=== PATIENT | male | born 1990 | race Two or more races ===

== ENCOUNTER 2020-09-12 15:02 | Emergency (ER) | payer SELFPAY ==
--- NOTE | 2020-09-12 15:15 | XR_ITS ---
EXAMINATION: XR KNEE, LEFT CLINICAL INFORMATION: Pain COMPARISON: None TECHNIQUE: Two views of the left knee. FINDINGS: There is no fracture or subluxation. Compartmental joint spaces are maintained. No joint effusion. The soft tissues are unremarkable. XR/XR knee LT 2V IMPRESSION: Normal appearance of the left knee.
[2020-09-12 15:21] VITALS: BP 126/76; PULSE 74; RESP 16; TEMP 36.6; O2SAT 98; BMI 29.0
--- NOTE | 2020-09-12 15:57 | ED_ITS ---
HPI - Extremity Injury (Lower) General Chief Complaint: Extremity Injury, Lower <SALVADOR Wheatley - Last Filed: 09/12/20 16:07> Stated Complaint: L KNEE PAIN <SALVADOR Wheatley - Last Filed: 09/12/20 16:07> Time Seen by Provider: 09/12/20 15:15 <SALVADOR Wheatley - Last Filed: 09/12/20 16:07> History of Present Illness HPI Narrative: Patient complains of pain in the left knee for the past 3 or 4 days, no injury He has had pain on and off in this knee since an athletic injury 15 years ago but the pain is increasing and the last few days it has been very uncomfortable, no calf pain no new injury no numbness no weakness Pain is mild and moderate with weight-bearing <SALVADOR Wheatley - Last Filed: 09/12/20 16:07> Related Data Home Medications: Previous Rx's Medication Instructions Recorded ibuprofen 600 mg PO Q6H PRN #20 tab 09/12/20 <SALVADOR Wheatley - Last Filed: 09/12/20 16:07> Allergies/Adverse Reactions: Allergies Allergy/AdvReac Type Severity Reaction Status Date / Time No Known Allergies Allergy Verified 09/12/20 16:07 <SALVADOR Wheatley - Last Filed: 09/12/20 16:07> Review of Systems Review of Systems: No numbness no weakness no paresthesias no radiation of pain no rash no swelling no calf pain no fever no chills <SALVADOR Wheatley - Last Filed: 09/12/20 16:07> Yes all other systems are reviewed and are negative <SALVADOR Wheatley - Last Filed: 09/12/20 16:07> [facility] Past Medical History Attestation statement: The following information was validated with the patient. <ASLVADOR Wheatley - Last Filed: 09/12/20 16:07> [facility] Narrative: Knee injury of the left knee years ago <SALVADOR Wheatley - Last Filed: 09/12/20 16:07> Medical History: Medical History (Updated 09/13/20 @ 00:00 by Background Daemmichael) No known health problems <SALVADOR Wheatley Last Filed: 09/12/20 16:07> Social History Social History: Social History Smoked in Last 30 Days: No Use of substances other than those prescribed or required for medical reasons: No Advance Directives: No Advance Directives Information Provided: Yes <SALVADOR Wheatley - Last Filed: 09/12/20 16:07> Physical Exam Vital Signs: Vital Signs: Last Vital Signs Temp 97.8 F 09/12/20 15:21 Pulse 74 09/12/20 15:21 Resp 16 09/12/20 15:21 BP 126/76 09/12/20 15:21 Pulse Ox 98 09/12/20 15:21 Body Mass Index 29.0 <SALVADOR Wheatley - Last Filed: 09/12/20 16:07> Vital Signs: Last Vital Signs Temp 97.8 F 09/12/20 15:21 Pulse 74 09/12/20 15:21 Resp 16 09/12/20 15:21 BP 126/76 09/12/20 15:21 Pulse Ox 98 09/12/20 15:21 Body Mass Index 29.0 <Sidney Portillo MD - Last Filed: 09/18/20 16:00> General appearance no acute distress comfortable relaxed cooperative The neck is supple no respiratory distress The extremities the left knee has lateral joint line tenderness there is no swelling no effusion no redness no warmth there is pain with flexion at around 90 degrees and the knee extends fully to 180, the skin is intact and neurovascular intact distal Skin no rash Neuro no focal deficit <SALVADOR Wheatley - Last Filed: 09/12/20 16:07> Course Course Course Narrative: Patient ambulates easily with a limp X-ray of the left knee did not show any arthritic change or acute abnormality and patient is discharged to follow with Orthopedics <SALVADOR Wheatley - Last Filed: 09/12/20 16:07> I have reviewed the chart <Sidney Portillo MD - Last Filed: 09/18/20 16:00> Discharge Plan Discharge Clinical Impression: Left knee sprain <SALVADOR Wheatley - Last Filed: 09/12/20 16:07> Patient Disposition: Home, Self-Care <SALVADOR Wheatley - Last Filed: 09/12/20 16:07> Additional Instructions: You may have injury to a ligament or cartilage in your knee so follow with orthopedist for further evaluation <SALVADOR Wheatley - Last Filed: 09/12/20 16:07> Prescriptions: New ibuprofen 600 mg tablet 600 mg PO Q6H PRN (Reason: pain) Qty: 20 RF: 0 <SALVADOR Wheatley - Last Filed: 09/12/20 16:07> Referrals: Benitez Mccarthy MD [Physician] - 2 days (Worsening left knee pain after an injury) <SALVADOR Wheatley - Last Filed: 09/12/20 16:07> Stand Alone Forms: Work/School Release <SALVADOR Wheatley - Last Filed: 09/12/20 16:07> Interventions: ED Discharge Assessment Last Done: 09/12/20 16:08 <SALVADOR Wheatley - Last Filed: 09/12/20 16:07> Discharge Date/Time: 09/12/20 16:13 <SALVADOR Wheatley - Last Filed: 09/12/20 16:07>
== END 2020-09-12 16:13 | disposition home or self-care (01) ==
PROVIDERS: Emergency Provider Emergency Medicine
DX: S83.92XA Sprain of unspecified site of left knee, initial encounter (principal); M25.562 Pain in left knee; X58.XXXA Exposure to other specified factors, initial encounter; Y93.9 Activity, unspecified; Y92.9 Unspecified place or not applicable; Y99.9 Unspecified external cause status
CPT/HCPCS: 73560; 99283; 99284

== ENCOUNTER 2023-03-29 12:52 | Emergency (ER) | payer MEDICAID, SELFPAY ==
--- NOTE | ~2023-03-29 | XR_ITS ---
EXAMINATION: XR SHOULDER, LEFT CLINICAL INFORMATION: Left shoulder pain COMPARISON: None available. TECHNIQUE: Three views of the left shoulder. FINDINGS: The bones and soft tissues are normal. No fracture. Glenohumeral and acromioclavicular alignment is anatomic with normal joint space. No abnormal soft tissue calcifications. XR/XR shoulder LT min 2V IMPRESSION: Normal left shoulder.
--- NOTE | 2023-03-29 13:38 | ED.GENADULT ---
HPI - General Adult General Chief complaint: Extremity Injury, Upper Stated complaint: L shoulder pain no inj Time Seen by Provider: 03/29/23 14:34 Source: patient Mode of arrival: ambulatory Limitations: no limitations History of Present Illness HPI narrative: 33 yo male with no significant past medical history, presents today with left shoulder pain x a few hours. Patient states that he was sitting in his car when he felt his left shoulder pop out of place . He was at work at the time, got out of the car and could not move the arm due to the pain. He eventually felt the left shoulder pop back into place. Notes he had a similar episode last week which resolved after rubbing his left shoulder, however cannot recall what he was doing at the time that caused his pain. He is currently able to move his left arm with some pain. Pain is localized to the lateral aspect of the left shoulder. No pain radiation. Pain is better with rest. Denies numbness or paresthesias to the left arm or left fingers, right arm or right shoulder pain. No trauma or injury to the left arm. Onset (ago): minute(s) (2) Location: left and upper extremity Radiation: non-radiation Quality: aching Relieving factors: none Exacerbating factors: none Related Data Previous Rx's Medication Instructions Recorded ibuprofen 600 mg tablet 600 mg PO Q6H PRN pain #20 tabs 09/12/20 Allergies Allergy/AdvReac Type Severity Reaction Status Date / Time No Known Allergies Allergy Verified 03/29/23 13:38 Review of Systems Review of Systems: Yes all other systems are reviewed and are negative [facility] Past Medical History Medical History (Updated 03/29/23 @ 15:34 by SALVADOR Pennington) No known health problems Social History Social History Advance Directives: No Physical Exam ED Vital Signs: Vital Signs - 24 hr 03/29/23 13:39 Temperature 98.0 F Pulse Rate 60 Respiratory Rate 16 Blood Pressure 120/81 Pulse Oximetry 99 Oxygen Delivery Method Room Air BMI result Body Mass Index 28.2 VSS Appearance: Alert. Oriented X3. No acute distress. Head: normocephalic, atraumatic. Eyes: Pupils equal, round and reactive to light. ENT: Pharynx normal. No tonsillar swelling or exudate. Neck: Normal inspection. Neck supple. CVS: Normal heart rate and rhythm. Pulses normal. Respiratory: No respiratory distress. Breath sounds normal. Abdomen: Soft and nontender. +BS x4 Skin: Skin warm and dry. Normal skin color. Normal skin turgor. No rashes. Extremities: Pain with abduction of the LUE. Normal ROM of the LUE. No erythema or edema of the UE. No lower extremity edema. No joint swelling. Neuro/psych: Oriented X 3. No motor deficit. No sensory deficit. CN II-XII intact. Normal speech and cognition. Course Course Course Narrative: RME performed by Debra Mcneil PA-C. Patient is a 33 year old assigned male at presenting to the emergency department with left shoulder pain. Imaging ordered. Patient placed back in the waiting room pending room availability and results. Medical Decision Making Medical Decision Making MDM Narrative: 33 yo male with no significant past medical history, presents today with left shoulder pain x a few hours. States he felt his left shoulder pop out of place and pop back into place after a few minutes. VSS. Physical exam significant for pain with abduction of the LUE. Normal ROM of the LUE. No UE edema or erythema. No lower extremity edema. No joint swelling. Patient sitting comfortably on the exam bed. States he is feeling better with left arm sling. Shoulder xray showed no acute findings. Patient to be discharged home with ibuprofen prn and ortho follow up. Discussed plan with patient and patient is in agreement. Stable for discharge. Differential Diagnosis Differential Diagnoses: The differential diagnosis associated with the presentation includes shoulder dislocation, rotator cuff tear, rotator cuff injury, humeral fracture Independent Interpretation I performed an independent interpretation of an: Plain X-Ray Interpretation: shoulder xray: no acute fracture, agree with radiologists read. Radiology Impression Discussion of test interpretation with radiology: I have reviewed the radiologist's reading. Radiologist Impression: ?XR/XR shoulder LT min 2V IMPRESSION: Normal left shoulder. Prescription Management I considered prescription management with: Pain Medication (ibuprofen) Discharge Plan Discharge Clinical Impression: Acute shoulder pain Patient Disposition: Home, Self-Care Instructions: Shoulder Pain (ED) Additional Instructions: Your x-ray today was normal. Recommend wearing the sling for immobilization and comfort for the next few days. Recommend following up with orthopedics for further evaluation. Recommend Motrin or ibuprofen for pain. Ice the area several times per day. If you develop new or worsening symptoms call 911 or come back to the ER for further evaluation. Prescriptions: No Action ibuprofen 600 mg tablet 600 mg PO Q6H PRN (Reason: pain) Qty: 20 0RF Referrals: [facility] [place] Orthopedic Surgeons [Provider Group] (Possible left shoulder dislocation, x-ray normal) Interventions: ED Discharge Assessment Last Done: 03/29/23 15:41 Discharge Date/Time: 03/29/23 16:18
[2023-03-29 13:39] VITALS: BP 120/81; PULSE 60; RESP 16; TEMP 36.7; O2SAT 99; BMI 28.2
--- NOTE | 2023-03-29 15:38 | PC.NURSE ---
sling applied to left arm for shoulder immobilization, pt tolerated well.
== END 2023-03-29 16:18 | disposition home or self-care (01) ==
PROVIDERS: Emergency Provider Emergency Medicine; PCP Internal Medicine
DX: M25.512 Pain in left shoulder (principal)
CPT/HCPCS: 73030; 99282; 99283

== ENCOUNTER 2023-05-14 10:16 | Emergency (ER) | payer MEDICAID, SELFPAY ==
--- NOTE | ~2023-05-14 | XR_ITS ---
EXAMINATION: XR SHOULDER, LEFT CLINICAL INFORMATION: Pain COMPARISON: None available. TECHNIQUE: AP external rotation, Grashey, scapular Y, and axillary views of the left shoulder. FINDINGS: The bones and soft tissues are normal. No fracture. Glenohumeral and acromioclavicular alignment is anatomic with normal joint space. No abnormal soft tissue calcifications. XR/XR shoulder LT min 2V IMPRESSION: Normal left shoulder.
[2023-05-14 10:30] VITALS: BP 134/81; BP 154/73; PULSE 103; PULSE 121; RESP 18; TEMP 36.4; O2SAT 98; BMI 29.0
--- NOTE | 2023-05-14 10:33 | ECG_ITS ---
Test Reason : overdose Blood Pressure : / mmHG Vent. Rate : 093 BPM Atrial Rate : 093 BPM P-R Int : 176 ms QRS Dur : 086 ms QT Int : 336 ms P-R-T Axes : 062 021 028 degrees QTc Int : 417 ms Normal sinus rhythm Normal ECG When compared with ECG of 27-MAY-2016 15:48, Vent. rate has increased BY 36 BPM QT has lengthened Referred By: Virginia Sher Electronically Signed By:Meet Dykes
--- NOTE | 2023-05-14 10:41 | PC.NURSE ---
Pt to [facility] [place] from [place] via EMS for overdose, pt recieved 4 of Narcan from EMS. Currently A&Ox; calm & cooperative. Plan for EKG, labs, observation. No belongings on patient. WCTA
[2023-05-14 10:42] VITALS: BP 154/73; PULSE 103; RESP 18; TEMP 36.4; O2SAT 98
[2023-05-14 10:47] LABS: MANUAL DIFF FLAG NO
[2023-05-14 10:49] LABS: Basophils Absolute Auto 0.1 X10*3/uL (0.0-0.2); Basophils Percent Auto 0.5 % (0-2); Eosinophils Absolute Auto 0.3 X10*3/uL (0.0-0.4); Eosinophils Percent Auto 2.4 % (0-4); Hematocrit 49.1 % (42.0-52.0); Hemoglobin 16.8 g/dl (14.0-18.0); Imm Gran Abs Auto 0.05 X10*3/uL (0.00-0.03); Imm Gran Pct Auto 0.5 % (0.0-0.4); Lymphocytes Absolute Auto 1.4 X10*3/uL (1.2-4.9); Lymphocytes Percent Auto 12.5 % (20-40); Mean Corpuscular HGB Conc 34.2 g/dl (31.0-36.0); Mean Corpuscular Hemoglobin 28.8 pg (27.0-33.0); Mean Corpuscular Volume 84.2 fL (80.0-98.0); Mean Platelet Volume 10.3 fL (9.4-12.4); Monocytes Absolute Auto 0.6 X10*3/uL (0.1-1.2); Monocytes Percent Auto 5.2 % (2-11); Neutrophils Absolute Auto 8.5 x10*3/uL (2.0-8.3); Neutrophils Percent Auto 78.9 % (45-73); Platelet Count 175 X10*3/uL (160-400); Red Blood Count 5.83 X10*6/uL (4.60-5.80); Red Cell Distribution Width 12.9 % (11.0-16.0); White Blood Count 10.8 X10*3/uL (4.8-10.8)
[2023-05-14 11:10] LABS: Amphetamine Screen Urine Not Detected (Not Detect); Barbiturates, Urine Not Detected (Not Detect); Benzodiazepines Screen Urine Not Detected (Not Detect); Cannabinoid Screen Urine Not Detected (Not Detect); Cocaine Screen Urine POSITIVE (Not Detect); Fentanyl, urine Not Detected (Not Detect); Opiate Screen Urine Not Detected (Not Detect); Phencyclidine Screen Urine Not Detected (Not Detect)
[2023-05-14 11:10] LABS: COVID-19 Test Negative (Negative); IDNOW Serial# BCCEAD1C
[2023-05-14 11:13] LABS: Acetaminophen LAB < 17 mcg/mL (<30); Alanine Aminotransferase 58 U/L (0-40); Albumin Level 4.4 g/dL (3.5-5.0); Alkaline Phosphatase 124 U/L (39-117); Anion Gap 16 (12-20); Aspartate Amino Transferase 27 U/L (5-37); Bilirubin Total 0.6 mg/dL (0.0-1.0); Blood Urea Nitrogen 9 mg/dL (9-16); Calcium 9.9 mg/dL (8.4-10.2); Carbon Dioxide 21 mmol/L (22-29); Chloride 105 mmol/L (96-108); Creatinine Clr Calc Pharmacy 166.8; Estimated Glomerular Filt Rate > 60; Ethanol < 10 mg/dL; Glucose Random 130 mg/dL (60-115); Magnesium 2.3 mg/dL (1.6-2.6); Potassium 3.9 mmol/L (3.3-5.1); Salicylate < 5.0 mg/dL (15-30); Sodium 138 mmol/L (135-145); Total Protein 7.6 g/dL (6.5-8.0)
[2023-05-14 11:19] LABS: Troponin-I High Sensitivity < 2.7 ng/L (<3.5-35.0)
--- NOTE | 2023-05-14 11:50 | ED.GENADULT ---
HPI - General Adult General Chief complaint: Overdose Stated complaint: Overdose on a speedball, narcan given Time Seen by Provider: 05/14/23 10:30 Source: patient Mode of arrival: ambulatory Limitations: no limitations History of Present Illness HPI narrative: This is a 33-year-old male history of cocaine use disorder presenting to the emergency department after his spouse thought he was unresponsive however he states he was sleeping, she then called 911,, they administered Narcan he tells me prior to administering Narcan he is awake, he reports that yesterday he used a lot of cocaine and drink therefore he was tired. His is worried. Denies SI and HI. Denies medical complaints. Denies visual, auditory and tactile hallucinations. Denies drinking today. Denies chest pain and shortness of breath. Related Data Previous Rx's Medication Instructions Recorded ibuprofen 600 mg tablet 600 mg PO Q6H PRN pain #20 tabs 09/12/20 Allergies Allergy/AdvReac Type Severity Reaction Status Date / Time No Known Allergies Allergy Verified 05/14/23 10:30 Review of Systems Review of Systems: Constitutional : No Weight loss, No Fever, No Chills, No Fatigue, No Malaise ENT/Mouth : No sore throat, No Rhinorrhea Eyes: No Eye Pain, No Swelling, No Redness Cardiovascular : No Chest Pain, No SOB, No Dyspnea on Exertion, No Orthopnea, No Edema, No Palpitations Respiratory : No Cough, No Sputum, No Wheezing Gastrointestinal : No Nausea, No Vomiting, No Diarrhea, No Constipation, No abdominal Pain, No Hematochezia, No Melena Genitourinary : No Dysuria, No Urinary Frequency, No Hematuria, Musculoskeletal : No joint pain, No Myalgias, No Joint Swelling Skin : No Skin Lesions, No rash Neuro : No Weakness, No Numbness, No Dizziness, No Headache Psych : No Anxiety/Panic, No Depression All other systems reviewed and are negative Yes all other systems are reviewed and are negative PMFSH Past Medical History Attestation statement: The following information was validated with the patient. Source: old records reviewed and nursing notes reviewed Medical History No known health problems Social History Social History Advance Directives: No Advance Directives Information Provided: Yes Physical Exam ED Vital Signs: Vital Signs - 24 hr 05/14/23 10:30 05/14/23 10:42 Temperature 97.6 F 97.6 F Pulse Rate 103 H 103 H Respiratory Rate 18 18 Blood Pressure 154/73 H 154/73 H Pulse Oximetry 98 98 Oxygen Delivery Method Room Air Room Air BMI result Body Mass Index 29.0 vss Appearance: Alert.? Oriented X3.? No acute distress.? Head: Normocephalic, atraumatic, no step-offs or deformities Eyes: Pupils equal, round and reactive to light.? CVS: Normal heart rate and rhythm.? Pulses normal.? Respiratory: No respiratory distress.? Breath sounds normal.? Abdomen: Soft and nontender.? Skin: Skin warm and dry.? Normal skin color.? Normal skin turgor.? Extremities: No lower extremity edema.? No calf ttp. 5/5 strength to bilateral upper and lower extremities Neuro: Oriented X 3.? No motor deficit.? No sensory deficit. CN 2-12 intact Course Reevaluation(s) Reevaluation #1: CBC appears to be within normal limits. Chemistry unremarkable. Transaminases elevated in a 2-1 fashion likely secondary to chronic alcohol abuse, troponin negative, EKG nonischemic. Urine clean. Patient's toxicology positive for cocaine. Salicylates acetaminophen and ethanol negative. Patient resting comfortably, vital signs stable, no chest pain or shortness of breath patient to be discharged at this time. Was seen by the care team, did not need any resources at this time will follow-up with outpatient providers. No SI or HI. Educated patient on diagnosis and treatment plan, answered all question, patient verbalizes understanding. At this time patient will be discharged home, advised to return with new or worsening symptoms. Educated on worrisome signs and symptoms and when to return. At this time I feel comfortable discharge home. Time: 13:06 Reevaluation #2: Patient had a brief episode of left shoulder pain, he was sleeping on his left side, he is adamant that he receives a x-ray. On re-evaluation he now states his shoulder pain is gone and he is able to move his shoulder he feels like his shoulder was just stuck for a little bit after sleeping on it. Patient well-appearing. No chest pain or shortness of breath. Full range of motion no signs of neurovascular compromise 2+ radial pulses equal bilateral. Medical Decision Making Medical Decision Making [facility] Narrative: 1150 33-year-old male presents via EMS after suspected drug overdose, reports he took a speedball last night and was drinking. Physical exam benign patient alert and oriented x4 neuro nonfocal. Likely drug overdose versus alcohol intoxication. Unlikely intracranial hemorrhage, stroke, posterior stroke, no signs of neurovascular compromise, neurological symptoms. Unlikely metabolic derangements, syncope, seizure Plan medical clearance evaluation by behavioral health team Differential Diagnosis Differential Diagnoses: The differential diagnosis associated with the presentation includes Likely drug overdose versus alcohol intoxication. Unlikely intracranial hemorrhage, stroke, posterior stroke, no signs of neurovascular compromise, neurological symptoms. Unlikely metabolic derangements, syncope, seizure Admission/Observation Consideration of admission/observation: Escalation of care including admission/observation considered unlikely Lab Data [facility] Lab Attestation statement: I reviewed the patient's lab results. 05/14/23 10:43 05/14/23 10:43 Labs: Lab Results 05/14/23 05/14/23 05/14/23 Range/Units 10:43 10:43 10:43 WBC 10.8 (4.8-10.8) X10*3/uL RBC 5.83 H (4.60-5.80) X10*6/uL Hgb 16.8 (14.0-18.0) g/dl Hct 49.1 (42.0-52.0) % MCV 84.2 (80.0-98.0) fL MCH 28.8 (27.0-33.0) pg MCHC 34.2 (31.0-36.0) g/dl RDW 12.9 (11.0-16.0) % Plt Count 175 (160-400) X10*3/uL MPV 10.3 (9.4-12.4) fL Immature Gran % (Auto) 0.5 H (0.0-0.4) % Neut % (Auto) 78.9 H (45-73) % Lymph % (Auto) 12.5 L (20-40) % [place] % (Auto) 5.2 (2-11) % Eos % (Auto) 2.4 (0-4) % Baso % (Auto) 0.5 (0-2) % Lymph # (Auto) 1.4 (1.2-4.9) X10*3/uL [place] # (Auto) 0.6 (0.1-1.2) X10*3/uL Eos # (Auto) 0.3 (0.0-0.4) X10*3/uL Baso # (Auto) 0.1 (0.0-0.2) X10*3/uL Abs Immat Gran (auto) 0.05 H (0.00-0.03) X10*3/uL Absolute Neuts (auto) 8.5 H (2.0-8.3) x10*3/uL Absolute Nucleated RBC 0.000 (0.0-0.012) X10*3/uL Nucleated RBC % (auto) 0.0 (0.0-0.2) /100WBC Sodium 138 (135-145) mmol/L Potassium 3.9 (3.3-5.1) mmol/L Chloride 105 (96-108) mmol/L Carbon Dioxide 21 L (22-29) mmol/L Anion Gap 16 (12-20) BUN 9 (9-16) mg/dL Creatinine 0.79 (0.5-1.4) mg/dL Estim Creat Clear Calc 166.8 Estimated GFR > 60 Random Glucose 130 H (60-115) mg/dL Calcium 9.9 (8.4-10.2) mg/dL Magnesium 2.3 (1.6-2.6) mg/dL Total Bilirubin 0.6 (0.0-1.0) mg/dL AST 27 (5-37) U/L ALT 58 H (0-40) U/L Alkaline Phosphatase 124 H (39-117) U/L Troponin I High Sens < 2.7 (<3.5-35.0) ng/L Total Protein 7.6 (6.5-8.0) g/dL Albumin 4.4 (3.5-5.0) g/dL Urine Color Urine Appearance Urine pH (5.0-9.0) Ur Specific [place] (1.005-1.025) Urine Protein (Neg-Trace) mg/dL Urine Glucose (UA) (Negative) mg/dL Urine Ketones (Negative) mg/dL Urine Blood (Negative) Urine Nitrite (Negative) Ur Leukocyte Esterase (Negative) Urine RBC (0-2) /HPF Urine WBC (0-5) /HPF Ur Squamous Epith Cells (0-2) /HPF Urine Bacteria (None Seen) Hyaline Casts (0-2) /LPF Salicylates (15-30) mg/dL Urine Opiates Screen (Not Detect) Urine Fentanyl Screen (Not Detect) Acetaminophen (<30) mcg/mL Ur Barbiturates Screen (Not Detect) Ur Phencyclidine Scrn (Not Detect) Ur Amphetamines Screen (Not Detect) U Benzodiazepines Scrn (Not Detect) Urine Cocaine Screen (Not Detect) U Marijuana (THC) Screen (Not Detect) Ethyl Alcohol < 10 mg/dL COVID-19 (FAISAL) (Negative) COVID-19 Clin Com 05/14/23 05/14/23 05/14/23 Range/Units 10:43 10:43 10:49 WBC (4.8-10.8) X10*3/uL RBC (4.60-5.80) X10*6/uL Hgb (14.0-18.0) g/dl Hct (42.0-52.0) % MCV (80.0-98.0) fL MCH (27.0-33.0) pg MCHC (31.0-36.0) g/dl RDW (11.0-16.0) % Plt Count (160-400) X10*3/uL MPV (9.4-12.4) fL Immature Gran % (Auto) (0.0-0.4) % Neut % (Auto) (45-73) % Lymph % (Auto) (20-40) % [place] % (Auto) (2-11) % Eos % (Auto) (0-4) % Baso % (Auto) (0-2) % Lymph # (Auto) (1.2-4.9) X10*3/uL [place] # (Auto) (0.1-1.2) X10*3/uL Eos # (Auto) (0.0-0.4) X10*3/uL Baso # (Auto) (0.0-0.2) X10*3/uL Abs Immat Gran (auto) (0.00-0.03) X10*3/uL Absolute Neuts (auto) (2.0-8.3) x10*3/uL Absolute Nucleated RBC (0.0-0.012) X10*3/uL Nucleated RBC % (auto) (0.0-0.2) /100WBC Sodium (135-145) mmol/L Potassium (3.3-5.1) mmol/L Chloride (96-108) mmol/L Carbon Dioxide (22-29) mmol/L Anion Gap (12-20) BUN (9-16) mg/dL Creatinine (0.5-1.4) mg/dL Estim Creat Clear Calc Estimated GFR Random Glucose (60-115) mg/dL Calcium (8.4-10.2) mg/dL Magnesium (1.6-2.6) mg/dL Total Bilirubin (0.0-1.0) mg/dL AST (5-37) U/L ALT (0-40) U/L Alkaline Phosphatase (39-117) U/L Troponin I High Sens (<3.5-35.0) ng/L Total Protein (6.5-8.0) g/dL Albumin (3.5-5.0) g/dL Urine Color Yellow Urine Appearance Clear Urine pH 6.5 (5.0-9.0) Ur Specific [place] 1.020 (1.005-1.025) Urine Protein 30 (1+) H (Neg-Trace) mg/dL Urine Glucose (UA) Negative (Negative) mg/dL Urine Ketones Negative (Negative) mg/dL Urine Blood Negative (Negative) Urine Nitrite Negative (Negative) Ur Leukocyte Esterase Negative (Negative) Urine RBC 0-2 (0-2) /HPF Urine WBC 0-5 (0-5) /HPF Ur Squamous Epith Cells 0-2 (0-2) /HPF Urine Bacteria None Seen (None Seen) Hyaline Casts 3-5 (0-2) /LPF Salicylates < 5.0 L (15-30) mg/dL Urine Opiates Screen (Not Detect) Urine Fentanyl Screen (Not Detect) Acetaminophen < 17 (<30) mcg/mL Ur Barbiturates Screen (Not Detect) Ur Phencyclidine Scrn (Not Detect) Ur Amphetamines Screen (Not Detect) U Benzodiazepines Scrn (Not Detect) Urine Cocaine Screen (Not Detect) U Marijuana (THC) Screen (Not Detect) Ethyl Alcohol mg/dL COVID-19 (FAISAL) Negative (Negative) COVID-19 Clin Com See Note 07/19/23 Range/Units 10:49 WBC (4.8-10.8) X10*3/uL RBC (4.60-5.80) X10*6/uL Hgb (14.0-18.0) g/dl Hct (42.0-52.0) % MCV (80.0-98.0) fL MCH (27.0-33.0) pg MCHC (31.0-36.0) g/dl RDW (11.0-16.0) % Plt Count (160-400) X10*3/uL MPV (9.4-12.4) fL Immature Gran % (Auto) (0.0-0.4) % Neut % (Auto) (45-73) % Lymph % (Auto) (20-40) % [place] % (Auto) (2-11) % Eos % (Auto) (0-4) % Baso % (Auto) (0-2) % Lymph # (Auto) (1.2-4.9) X10*3/uL [place] # (Auto) (0.1-1.2) X10*3/uL Eos # (Auto) (0.0-0.4) X10*3/uL Baso # (Auto) (0.0-0.2) X10*3/uL Abs Immat Gran (auto) (0.00-0.03) X10*3/uL Absolute Neuts (auto) (2.0-8.3) x10*3/uL Absolute Nucleated RBC (0.0-0.012) X10*3/uL Nucleated RBC % (auto) (0.0-0.2) /100WBC Sodium (135-145) mmol/L Potassium (3.3-5.1) mmol/L Chloride (96-108) mmol/L Carbon Dioxide (22-29) mmol/L Anion Gap (12-20) BUN (9-16) mg/dL Creatinine (0.5-1.4) mg/dL Estim Creat Clear Calc Estimated GFR Random Glucose (60-115) mg/dL Calcium (8.4-10.2) mg/dL Magnesium (1.6-2.6) mg/dL Total Bilirubin (0.0-1.0) mg/dL AST (5-37) U/L ALT (0-40) U/L Alkaline Phosphatase (39-117) U/L Troponin I High Sens (<3.5-35.0) ng/L Total Protein (6.5-8.0) g/dL Albumin (3.5-5.0) g/dL Urine Color Urine Appearance Urine pH (5.0-9.0) Ur Specific [place] (1.005-1.025) Urine Protein (Neg-Trace) mg/dL Urine Glucose (UA) (Negative) mg/dL Urine Ketones (Negative) mg/dL Urine Blood (Negative) Urine Nitrite (Negative) Ur Leukocyte Esterase (Negative) Urine RBC (0-2) /HPF Urine WBC (0-5) /HPF Ur Squamous Epith Cells (0-2) /HPF Urine Bacteria (None Seen) Hyaline Casts (0-2) /LPF Salicylates (15-30) mg/dL Urine Opiates Screen Not Detected (Not Detect) Urine Fentanyl Screen Not Detected (Not Detect) Acetaminophen (<30) mcg/mL Ur Barbiturates Screen Not Detected (Not Detect) Ur Phencyclidine Scrn Not Detected (Not Detect) Ur Amphetamines Screen Not Detected (Not Detect) U Benzodiazepines Scrn Not Detected (Not Detect) Urine Cocaine Screen POSITIVE H (Not Detect) U Marijuana (THC) Screen Not Detected (Not Detect) Ethyl Alcohol mg/dL COVID-19 (FAISAL) (Negative) COVID-19 Clin Com Critical Care Time Critical Care Time Critical Care Time: No Discharge Plan Discharge Clinical Impression: Cocaine use disorder Patient Disposition: Home, Self-Care Instructions: Cocaine Abuse (ED) Additional Instructions: Take your medications as prescribed. If you were prescribed antibiotics today, it is important that you take your medication to their entirety, do not skip any doses, do not finish them early. Follow-up with your primary care provider this week. Return to the emergency department with new or worsening symptoms. Such as fevers, chills, chest pain, shortness of breath, nausea, vomiting, dizziness, headache, vision changes, lethargy, suicidal or homicidal ideation In case of emergency call 911 Prescriptions: No Action ibuprofen 600 mg tablet 600 mg PO Q6H PRN (Reason: pain) Qty: 20 0RF Referrals: Pollo Hernandez MD [Primary Care Provider] - 2 days Stand Alone Forms: Work/School Release
[2023-05-14 12:48] LABS: Appearance Urine Clear; Color Urine Yellow; Glucose Urine UA Negative (Negative); Leukocyte Esterase Urine Negative (Negative); Nitrite Urine Negative (Negative); PH 6.5 (5.0-9.0); UMIC TRIGGER UACC YES; Urine Blood Negative (Negative); Urine Ketones Negative (Negative); Urine Protein 30 (1+) mg/dL (Neg-Trace)
[2023-05-14 12:54] LABS: Bacteria Urine None Seen (None Seen); RBC Urine 0-2 /HPF (0-2); Squamous Epithelial Cell Urine 0-2 /HPF (0-2); WBC Urine 0-5 /HPF (0-5)
--- NOTE | 2023-05-14 13:28 | MHC.RECOVSUP ---
Met with pt in ED18H for potential OD. Pt informs it was not an OD and labs confirm, Pt is not interested in any recovery support at this time.
--- NOTE | 2023-05-14 13:29 | PC.NURSE ---
Pt cleared for DC by ED provider; When RN attempted to provide DC instructions patient stated that he had very bad arm pain; Provider notified, rads ordered. Awaiting imaging, no DC at this time. [email or web address]
== END 2023-05-14 13:50 | disposition home or self-care (01) ==
PROVIDERS: Physician Assistant; Emergency Provider Emergency Medicine; PCP Internal Medicine
DX: F14.10 Cocaine abuse, uncomplicated (principal); M25.512 Pain in left shoulder; Z20.822 Contact with and (suspected) exposure to COVID-19
CPT/HCPCS: 73030; 80053; 80143; 80179; 80307; 81001; 81003; 83735; 84484; 85025; 87635; 93005; 99284; 99285

== ENCOUNTER → 2023-05-14 10:33 | Outpatient (BNV) | payer MEDICAID, SELFPAY | PROVIDERS: Emergency Provider Emergency Medicine; PCP Internal Medicine; Visit Provider Internal Medicine Cardiovascular Disease | DX: F14.10 Cocaine abuse, uncomplicated (principal) | CPT/HCPCS: 93010 ==

== ENCOUNTER 2024-01-18 13:20 | Emergency (ER) | payer SELFPAY ==
--- NOTE | ~2024-01-18 | XR_ITS ---
EXAMINATION: XR FOREARM LEFT XR HUMERUS LEFT XR SHOULDER LEFT XR HAND WRIST LEFT CLINICAL INFORMATION: Fall on outstretched hand. Pain. COMPARISON: Radiographs of left shoulder from 05/14/2023. TECHNIQUE: Left shoulder, 3 views Left humerus, 2 views Left forearm, 2 views Left hand-wrist, 4 views FINDINGS: Left shoulder: Alignment is normal at the acromioclavicular and glenohumeral joints. There appears to be minimal calcium deposition at the lower pole of the glenoid in region of attachment of the long head triceps or inferior glenohumeral ligament. The glenoid has normal contour. No acute fractures are seen. The visualized left lung is normal. No evidence of rib injury. Left humerus: Alignment is normal at the glenohumeral joint and elbow. No evidence of humeral fracture. The soft tissues of the upper arm are unremarkable. Left forearm: The radius and ulna are intact. Alignment is normal and radioulnar joints. No elbow joint effusion. Soft tissues of the forearm are unremarkable. Left hand and wrist: The bones, joints and soft tissues of the hand and wrist are normal. XR/XR humerus LT IMPRESSION: No acute findings. No radiographic evidence of acute fracture or malalignment at the left shoulder, elbow, wrist or hand.
--- NOTE | ~2024-01-18 | XR_ITS ---
EXAMINATION: XR FOREARM LEFT XR HUMERUS LEFT XR SHOULDER LEFT XR HAND WRIST LEFT CLINICAL INFORMATION: Fall on outstretched hand. Pain. COMPARISON: Radiographs of left shoulder from 05/14/2023. TECHNIQUE: Left shoulder, 3 views Left humerus, 2 views Left forearm, 2 views Left hand-wrist, 4 views FINDINGS: Left shoulder: Alignment is normal at the acromioclavicular and glenohumeral joints. There appears to be minimal calcium deposition at the lower pole of the glenoid in region of attachment of the long head triceps or inferior glenohumeral ligament. The glenoid has normal contour. No acute fractures are seen. The visualized left lung is normal. No evidence of rib injury. Left humerus: Alignment is normal at the glenohumeral joint and elbow. No evidence of humeral fracture. The soft tissues of the upper arm are unremarkable. Left forearm: The radius and ulna are intact. Alignment is normal and radioulnar joints. No elbow joint effusion. Soft tissues of the forearm are unremarkable. Left hand and wrist: The bones, joints and soft tissues of the hand and wrist are normal. XR/XR forearm LT 2V IMPRESSION: No acute findings. No radiographic evidence of acute fracture or malalignment at the left shoulder, elbow, wrist or hand.
--- NOTE | ~2024-01-18 | XR_ITS ---
EXAMINATION: XR FOREARM LEFT XR HUMERUS LEFT XR SHOULDER LEFT XR HAND WRIST LEFT CLINICAL INFORMATION: Fall on outstretched hand. Pain. COMPARISON: Radiographs of left shoulder from 05/14/2023. TECHNIQUE: Left shoulder, 3 views Left humerus, 2 views Left forearm, 2 views Left hand-wrist, 4 views FINDINGS: Left shoulder: Alignment is normal at the acromioclavicular and glenohumeral joints. There appears to be minimal calcium deposition at the lower pole of the glenoid in region of attachment of the long head triceps or inferior glenohumeral ligament. The glenoid has normal contour. No acute fractures are seen. The visualized left lung is normal. No evidence of rib injury. Left humerus: Alignment is normal at the glenohumeral joint and elbow. No evidence of humeral fracture. The soft tissues of the upper arm are unremarkable. Left forearm: The radius and ulna are intact. Alignment is normal and radioulnar joints. No elbow joint effusion. Soft tissues of the forearm are unremarkable. Left hand and wrist: The bones, joints and soft tissues of the hand and wrist are normal. XR/XR hand wrist LT IMPRESSION: No acute findings. No radiographic evidence of acute fracture or malalignment at the left shoulder, elbow, wrist or hand.
--- NOTE | ~2024-01-18 | XR_ITS ---
EXAMINATION: XR FOREARM LEFT XR HUMERUS LEFT XR SHOULDER LEFT XR HAND WRIST LEFT CLINICAL INFORMATION: Fall on outstretched hand. Pain. COMPARISON: Radiographs of left shoulder from 05/14/2023. TECHNIQUE: Left shoulder, 3 views Left humerus, 2 views Left forearm, 2 views Left hand-wrist, 4 views FINDINGS: Left shoulder: Alignment is normal at the acromioclavicular and glenohumeral joints. There appears to be minimal calcium deposition at the lower pole of the glenoid in region of attachment of the long head triceps or inferior glenohumeral ligament. The glenoid has normal contour. No acute fractures are seen. The visualized left lung is normal. No evidence of rib injury. Left humerus: Alignment is normal at the glenohumeral joint and elbow. No evidence of humeral fracture. The soft tissues of the upper arm are unremarkable. Left forearm: The radius and ulna are intact. Alignment is normal and radioulnar joints. No elbow joint effusion. Soft tissues of the forearm are unremarkable. Left hand and wrist: The bones, joints and soft tissues of the hand and wrist are normal. XR/XR shoulder LT min 2V IMPRESSION: No acute findings. No radiographic evidence of acute fracture or malalignment at the left shoulder, elbow, wrist or hand.
[2024-01-18 13:26] VITALS: BP 155/91; PULSE 88; RESP 18; TEMP 36.8; O2SAT 100; BMI 28.4
--- NOTE | 2024-01-18 13:27 | ED_ITS ---
HPI - Extremity Injury (Upper) General Chief Complaint: Extremity Injury, Upper Stated Complaint: L shoulder inj Time Seen by Provider: 01/18/24 15:13 Source: patient Mode of arrival: ambulatory Limitations: no limitations History of Present Illness HPI narrative: 33-year-old male with no significant pmhx presents to the ED today with left shoulder pain s/p mechanical fall 4 days ago. Patient admits to tripping on the bottom step while descending indoor stairs and falling onto his left outstretched arm. Denies head strike or LOC. Not on thinners. Since this time he endorses left shoulder pain and left upper extremity weakness secondary to pain. The pain is exacerbated with lifting the left arm. He states that he has been taking OTC pain medications without improvement. His last dose was yesterday. Denies wrist or hand pain, elbow pain, numbness/tingling of the left upper extremity, fever, chills, headache, dizziness, N/V. Denies other concerns. Related Data Previous Rx's Medication Instructions Recorded ibuprofen 600 mg tablet 600 mg PO Q6H PRN pain #20 tabs 09/12/20 cyclobenzaprine 5 mg tablet 5 mg PO BEDTIME PRN muscle spasm 01/18/24 #7 tabs lidocaine 5 % topical patch 1 patch topical DAILY #15 ea 01/18/24 (Lidoderm) naproxen 500 mg tablet 500 mg PO Q8-12H PRN pain (scale 01/18/24 score 4-6) #14 tabs Allergies Allergy/AdvReac Type Severity Reaction Status Date / Time No Known Allergies Allergy Verified 01/18/24 13:26 Review of Systems Review of Systems: Constitutional: No fever, chills, fatigue, night sweats, weight changes ENT/Mouth: No ear pain, hearing loss, nasal congestion, sinus pain, rhinorrhea, sore throat Eyes: No eye pain, swelling, redness, vision changes, discharge Cardio: No chest pain, palpitations, KAUR, orthopnea, peripheral edema Pulm: No SOB, cough, sputum, wheezing, dyspnea, hemoptysis GI: No nausea, vomiting, hematemesis, abdominal pain, diarrhea, constipation, hematochezia, melena : No irregular bleeding, dysuria, frequency, urgency, hesitancy, hematuria, flank pain, urinary flow changes, urinary incontinence or retention MSK: No back pain, neck pain, joint pain, myalgias, +left shoulder pain Skin: No lesions, rashes Neuro: No weakness, numbness, paresthesias, LOC, dizziness, headache Psych: No anxiety/panic, depression, SI/HI, AH/VH All other systems reviewed and are negative. REPLACED BY [facility] Past Medical History Attestation statement: The following information was validated with the patient. Source: old records reviewed and nursing notes reviewed Medical History No known health problems Social History Social History Advance Directives: No Advance Directives Information Provided: No Physical Exam Vital Signs: Vital Signs: Last Vital Signs Temp 98.3 F 01/18/24 15:55 Pulse 88 01/18/24 15:55 Resp 18 01/18/24 15:55 BP 155/91 H 01/18/24 15:55 Pulse Ox 100 01/18/24 15:55 O2 Del Method Room Air 01/18/24 15:55 BMI result Body Mass Index 28.4 Hypertensive, vitals otherwise WNL Const: General: cooperative, healthy appearing, comfortable and no acute distress Orientation/consciousness: patient oriented x3 Limitations: no limitations HEENT: Head: Yes normal to inspection, Yes No palpable skull fracture present, Yes normocephalic and Yes atraumatic Ears: hearing grossly normal bilaterally General nose exam: Normal external nose present and Normal septum present Eyes: General: appearance normal, both eyes and all related structures Conjunctivae: conjunctivae normal Sclerae: sclerae normal Pupils: Equal, round and reactive pupils present Neck: Neck: Yes normal visual inspection and Yes full ROM Resp: Effort & Inspection: normal respiratory effort Auscultation: clear to auscultation bilaterally Cardio: Rate: regular rate Rhythm: regular rhythm Back/Spine/Pelvis: Other: No midline spinous tenderness or step off deformity. No paraspinal muscle tenderness. Skin: General skin exam: no rashes or lesions noted Neuro: Other: Strength 5/5 intact throughout.?Sensation intact to light touch.? Neurovascular intact distally.? General: patient oriented x3, gait normal and moves all extremities Cranial nerves: Yes Equal, round and reactive pupils present Extrem: Other: + no overlying skin changes, deformities , or joint edema. there is full ROM of left shoulder intact with pain elicited on abduction. strength 5/5 intact against resistance. no palpable deformity over AC joint or cervical. no tenderness to palpation or palpable deformity. full rom intact to left elbow and left wrist. no snuffbox tenderness. 2+ radial and ulnar pulses. sensation intact. General: Yes normal to inspection, Yes full ROM, Yes capillary refill normal and Yes no clubbing, cyanosis or edema Course Course Course Narrative: RME:?33 yo male here for eval off with left shoulder pain s/p FOOSH while descending stairs 4 days ago. admits to tripping on the last step. denies hs or LOC. no thinners. reports pain to his left shoulder and weakness to entire left upper extremity. denies numbness or tingling. taking OTC pain meds without improvement. last dose yesterday. xrs ordered. Full HPI, ROS and PE to be performed by the primary ED provider. Reevaluation(s) Reevaluation #1: 1520-- x-rays of the left shoulder, elbow, wrist/hand do not exhibit acute fracture or dislocation. Patient likely has a muscle strain vs contusion. Discussed all workup results with patient. He expresses relief that nothing is fractured. Will send Flexeril, lidocaine patches and naproxen to pharmacy for pain. Patient has remained stable throughout ED visit today. Discussed worrisome signs and symptoms and when to return to the ED. All questions answered at this time. Patient is agreeable with disposition and stable for discharge. Medical Decision Making Medical Decision Making [facility] Narrative: 33-year-old male with no significant pmhx presents to the ED today with left shoulder pain s/p mechanical fall 4 days ago. Patient hypertensive, vitals otherwise WNL. Afebrile. He is nontoxic appearing in no acute distress. On exam of LUE, there are no overlying skin changes, deformities, or joint edema. there is full ROM of left shoulder intact with pain elicited on abduction. strength 5/5 intact against resistance. no palpable deformity over AC joint or cervical. no tenderness to palpation or palpable deformity. full rom intact to left elbow and left wrist. no snuffbox tenderness. 2+ radial and ulnar pulses. sensation intact. Differential diagnosis includes msk sprain/ strain, contusion, fracture, dislocation. Low suspicion for NV compromise, threat to limb or compartment syndrome. Plan for imaging and re-evaluation. Differential Diagnosis Differential Diagnoses: The differential diagnosis associated with the presentation includes As above Admission/Observation Not indicated Independent Interpretation I performed an independent interpretation of an: Plain X-Ray Interpretation: I personally reviewed x-rays and agree with radiologist's interpretation. Radiology Impression Discussion of test interpretation with radiology: I have reviewed the radiologist's reading. Radiologist Impression: EXAMINATION: XR FOREARM LEFT XR HUMERUS LEFT XR SHOULDER LEFT XR HAND WRIST LEFT CLINICAL INFORMATION: Fall on outstretched hand. Pain. COMPARISON: Radiographs of left shoulder from 05/14/2023. TECHNIQUE: Left shoulder, 3 views Left humerus, 2 views Left forearm, 2 views Left hand-wrist, 4 views FINDINGS: Left shoulder: Alignment is normal at the acromioclavicular and glenohumeral joints. There appears to be minimal calcium deposition at the lower pole of the glenoid in region of attachment of the long head triceps or inferior glenohumeral ligament. The glenoid has normal contour. No acute fractures are seen. The visualized left lung is normal. No evidence of rib injury. Left humerus: Alignment is normal at the glenohumeral joint and elbow. No evidence of humeral fracture. The soft tissues of the upper arm are unremarkable. Left forearm: The radius and ulna are intact. Alignment is normal and radioulnar joints. No elbow joint effusion. Soft tissues of the forearm are unremarkable. Left hand and wrist: The bones, joints and soft tissues of the hand and wrist are normal. XR/XR shoulder LT min 2V IMPRESSION: No acute findings. No radiographic evidence of acute fracture or malalignment at the left shoulder, elbow, wrist or hand. Prescription Management I considered prescription management with: Pain Medication and Other (Flexeril, naproxen, lidocaine patches) Social Determinants Patient?s care significantly limited by Social Determinants of Health including: Other Social Determinant of Health Critical Care Time Critical Care Time Critical Care Time: No Discharge Plan Discharge Clinical Impression: Strain of left shoulder Patient Disposition: Home, Self-Care Instructions: Muscle Strain (ED), Rotator Cuff Injury Exercises (DC) Additional Instructions: Your imaging studies today did not show acute fracture. Your pain is likely musculoskeletal. Avoid bending, lifting, or twisting. Use ice several times per day for 20 minutes at a time for the next 48 hours and then change to heat. Flexeril is a muscle relaxer. Take this at night as it makes you drowsy. Do not drive, drink alcohol, or operate machinery while taking it. Naproxen is an anti-inflammatory / pain medication. Take with food. Do not take this with Ibuprofen. Lidoderm patches are numbing patches. Apply to painful areas. In addition you may take Tylenol at home. Follow up with your primary care provider as needed If your pain worsens, if you develop new numbness, tingling, weakness, loss of bowel or bladder function call 911 or return to the ER immediately for evaluation. Prescriptions: New lidocaine [Lidoderm] 5 % adhesive patch,medicated 1 patch topical DAILY Qty: 15 0RF Rx Instructions: leave on most painful area for up to 12 hrs naproxen 500 mg tablet 500 mg PO Q8-12H PRN (Reason: pain (scale score 4-6)) Qty: 14 0RF cyclobenzaprine 5 mg tablet 5 mg PO BEDTIME PRN (Reason: muscle spasm) Qty: 7 0RF No Action ibuprofen 600 mg tablet 600 mg PO Q6H PRN (Reason: pain) Qty: 20 0RF Referrals: Pollo Hernandez MD [Primary Care Provider] - Interventions: ED Discharge Assessment Last Done: 01/18/24 15:55 Discharge Date/Time: 01/18/24 15:56
[2024-01-18 15:55] VITALS: BP 155/91; PULSE 88; RESP 18; TEMP 36.8; O2SAT 100
== END 2024-01-18 15:56 | disposition home or self-care (01) ==
PROVIDERS: Emergency Provider Emergency Medicine; PCP Internal Medicine
DX: S46.912A Strain of unspecified muscle, fascia and tendon at shoulder and upper arm level, left arm, initial encounter (principal); W10.9XXA Fall (on) (from) unspecified stairs and steps, initial encounter; Y93.9 Activity, unspecified; Y92.9 Unspecified place or not applicable; Y99.9 Unspecified external cause status
CPT/HCPCS: 73030; 73060; 73090; 73110; 73130; 99282; 99283